=== PATIENT | male | born 2005 | race Caucasian/White ===

== ENCOUNTER 2025-01-18 19:06 | Emergency (ER) | payer OTHER | END 2025-01-18 20:25 | disposition home or self-care (01) | LOC: LL.ED 19:06 | DX: S93.401A Sprain of unspecified ligament of right ankle, initial encounter (principal); X50.1XXA Overexertion from prolonged static or awkward postures, initial encounter; Y93.01 Activity, walking, marching and hiking | CPT/HCPCS: 73610; 99283; A9270 ==